=== PATIENT | male | born 1950 | race Caucasian/White ===

== ENCOUNTER 2017-08-02 20:16 | Emergency (ER) | payer MEDICARE, MEDICAID ==
[~2017-08-02] VITALS: Ht 165.1 cm; Wt 185.0 kg
[~2017-08-02 20:16] MED LIST: ALPR2TAB7 PO; ATOR20TA66 PO; BACL10TA PO; DULO60CA64 PO; ENOX40SY7 SQ; LISI30TA4 PO; MELO-100 PO; TRAZ-143 PO; ZOLP5TAB8 PO
[2017-08-02] MEDS ORDERED: acetaminophen 325mg tablet PO ONE (20:40)
[2017-08-02] MEDS ORDERED: ketorolac tromethamine 15mg/ml inj. IM ONE (22:35)
[2017-08-02] MEDS ORDERED: ONDA4TAB12 PO (23:21)
[2017-08-02] MEDS ORDERED: HYDR-3965 PO (23:21)
[2017-08-02] MEDS ORDERED: AMOX-422 PO (23:21)
[2017-08-02 23:35] VITALS: BP 154/79
[2017-08-03] MEDS ORDERED: LIDOcaine 1.5% w/epinephrine 1:200,000 5ml ampul IJ ONE (00:20)
== END 2017-08-03 01:06 | disposition left against medical advice (07) ==
LOC: ER 20:17
DX: S02.40FA Zygomatic fracture, left side, initial encounter for closed fracture (principal); S00.12XA Contusion of left eyelid and periocular area, initial encounter; S20.212A Contusion of left front wall of thorax, initial encounter; S00.03XA Contusion of scalp, initial encounter; Z79.899 Other long term (current) drug therapy; Y08.89XA Assault by other specified means, initial encounter; Y93.89 Activity, other specified; Y92.89 Other specified places as the place of occurrence of the external cause; Y99.8 Other external cause status
CPT/HCPCS: 12011; 70450; 70486; 71045; 72125; 96372; 99284; A6449; J1885; J3490

== ENCOUNTER 2017-09-06 13:29 | Emergency (ER) | payer MEDICARE, MEDICAID ==
[~2017-09-06] VITALS: Ht 170.2 cm; Wt 82.0 kg
[~2017-09-06 13:29] MED LIST changes: +ONDA4TAB12 PO
[2017-09-06 14:36] LABS: BASOPHILS % (AUTO) 0.3 % (0-1); EOSINOPHILS # (AUTO) 0.2 X10'3 (0-0.9); HEMATOCRIT 42.5 % (42.0-52.0); HEMOGLOBIN 14.3 g/dl (14.0-17.9); LYMPHOCYTES # (AUTO) 1.8 X10'3 (1.1-4.8); MEAN CORPUSCULAR HEMOGLOBIN 29.1 PG (27.0-31.0); MEAN CORPUSCULAR HGB CONC 33.7 % (33.0-36.5); MEAN CORPUSCULAR VOLUME 86.5 FL (78-98); MEAN PLATELET VOLUME 6.7 FL (7.4-10.4); MONOCYTES # (AUTO) 0.8 X10'3 (0-0.9); MONOCYTES % (AUTO) 6.4 % (2-12); NEUTROPHILS # (AUTO) 9.3 X10'3 (1.8-7.7); NEUTROPHILS % (AUTO) 76.3 % (42-75); PLATELET COUNT 314 X10'3 (140-440); RED BLOOD COUNT 4.91 X10'6 (4.70-6.10); RED CELL DISTRIBUTION WIDTH 14.7 % (11.5-14.5); WHITE BLOOD COUNT 12.2 X10'3 (4.5-11.0)
[2017-09-06 14:48] LABS: ALANINE AMINOTRANSFERASE 26 U/L (12-78); ALBUMIN 3.4 G/DL (3.4-5.0); ALBUMIN/GLOBULIN RATIO 0.9 (1.1-1.5); ALKALINE PHOSPHATASE 114 IU/L (46-116); ANION GAP 7 (8-16); ASPARTATE AMINO TRANSFERASE 19 U/L (10-37); BILIRUBIN,TOTAL 0.5 MG/DL (0.1-1.0); BLOOD UREA NITROGEN 23 MG/DL (7-18); BUN/CREATININE RATIO 15.1 (5.4-32.0); CALCIUM 9.3 MG/DL (8.5-10.1); CHLORIDE 104 MMOL/L (99-107); CREATININE 1.52 MG/DL (0.60-1.10); GLUCOSE 124 MG/DL (70-104); POTASSIUM 4.2 MMOL/L (3.5-5.1); SODIUM 139 MMOL/L (135-145); TOTAL CARBON DIOXIDE 27.8 MMOL/L (24-32); eGFR 46 ML/MIN
[2017-09-06 14:51] LABS: URINE AMPHETAMINE SCREEN NEGATIVE (Neg); URINE BARBITUATE SCREEN NEGATIVE (Neg); URINE BENZODIAZEPINES SCREEN POSITIVE (Neg); URINE CANNABINOID SCREEN NEGATIVE (Neg); URINE COCAINE SCREEN NEGATIVE (Neg); URINE METHADONE SCREEN NEGATIVE (Neg); URINE OPIATE SCREEN NEGATIVE (Neg); URINE PHENCYCLIDINE SCREEN NEGATIVE (Neg)
[2017-09-06 14:57] LABS: ETHANOL < 0.010 GM/DL (0.0-0.010)
[2017-09-06] MEDS ORDERED: ALPR1TAB2 PO (17:24)
[2017-09-06 17:28] VITALS: BP 143/66
[2017-09-06] MEDS ORDERED: ALPRAZolam 0.5mg tablet PO ONE (20:00)
[2017-09-06] MEDS ORDERED: aripiprazole 5mg tablet PO SCH (20:00)
[2017-09-06] MEDS ORDERED: quetiapine 100mg tablet PO SCH (21:00)
== END 2017-09-06 23:32 | disposition home or self-care (01) ==
LOC: ER 13:29
DX: F32.9 Major depressive disorder, single episode, unspecified (principal); F17.200 Nicotine dependence, unspecified, uncomplicated; Z79.899 Other long term (current) drug therapy
CPT/HCPCS: 36415; 80053; 80305; 80320; 84443; 85025; 99284

== ENCOUNTER 2017-09-06 18:21 | Inpatient (IN) | payer MEDICARE, MEDICAID ==
[~2017-09-06] VITALS: Ht 170.2 cm; Wt 82.2 kg
[~2017-09-06 18:21] MED LIST changes: +ALPR1TAB2 PO; -TRAZ-143 PO; +TRAZ-218 PO
[2017-09-06 23:00] VITALS: BP 137/81
[2017-09-06] MEDS ORDERED: ondansetron 4mg rapidly disintigrating tab PO PRN (23:15)
[2017-09-07] MEDS ORDERED: acetaminophen 325mg tablet PO PRN (00:55)
[2017-09-07] MEDS ORDERED: mag hydrox/Alum hydrox/simeth 30ml oral suspension PO PRN (00:55)
[2017-09-07 08:00] VITALS: BP 110/58
[2017-09-07] MEDS: nicotine 21mg patch - 24 hr TD SCH (08:00)
[2017-09-07] MEDS ORDERED: lisinopril 10 MG tablet PO SCH (08:00)
[2017-09-07 08:27] VITALS: BP 92/53
[2017-09-07] MEDS: baclofen 10mg tablet PO SCH ×3 (08:36→23:00)
[2017-09-07 08:41] LABS: CHOL/HDL RATIO 3.9 (0.00-4.99); CHOLESTEROL 155 MG/DL (0-200); HDL CHOLESTEROL 40 MG/DL (35-60); LDL CHOLESTEROL 100 MG/DL (50-100); TRIGLYCERIDES 115 MG/DL (20-135)
[2017-09-07 09:10] LABS: HEMOGLOBIN A1C 5.7 % (4.5-6.2)
[2017-09-07 17:15] VITALS: BP 98/56
[2017-09-07 19:00] VITALS: BP 109/57
[2017-09-07] MEDS: ALPRAZolam 0.5mg tablet PO PRN (19:31)
[2017-09-07 23:00] VITALS: BP 120/70
[2017-09-07] MEDS: traZODone 150mg tablet PO SCH (23:00)
[2017-09-08 05:13] VITALS: BP 100/60
[2017-09-08 08:00] VITALS: BP 92/55
[2017-09-08] MEDS: nicotine 21mg patch - 24 hr TD SCH (08:00)
[2017-09-08] MEDS: lisinopril 10 MG tablet PO SCH (08:00)
[2017-09-08] MEDS: duloxetine 30mg CAPSULE.DR PO SCH (08:14)
[2017-09-08] MEDS: baclofen 10mg tablet PO SCH ×3 (08:14→21:16)
[2017-09-08 09:42] LABS: BASOPHILS % (AUTO) 0.3 % (0-1); EOSINOPHILS # (AUTO) 0.4 X10'3 (0-0.9); EOSINOPHILS % (AUTO) 3.5 % (0-6); HEMATOCRIT 38.5 % (42.0-52.0); HEMOGLOBIN 13.1 g/dl (14.0-17.9); LYMPHOCYTES % (AUTO) 18.2 % (21-51); MEAN CORPUSCULAR HEMOGLOBIN 29.3 PG (27.0-31.0); MEAN CORPUSCULAR VOLUME 86.1 FL (78-98); MEAN PLATELET VOLUME 7.1 FL (7.4-10.4); MONOCYTES # (AUTO) 0.8 X10'3 (0-0.9); MONOCYTES % (AUTO) 7.7 % (2-12); NEUTROPHILS # (AUTO) 7.8 X10'3 (1.8-7.7); NEUTROPHILS % (AUTO) 70.3 % (42-75); PLATELET COUNT 311 X10'3 (140-440); RED BLOOD COUNT 4.47 X10'6 (4.70-6.10); RED CELL DISTRIBUTION WIDTH 14.8 % (11.5-14.5)
[2017-09-08 09:58] LABS: ALBUMIN 3.1 G/DL (3.4-5.0); ANION GAP 7 (8-16); BLOOD UREA NITROGEN 25 MG/DL (7-18); CALCIUM 8.9 MG/DL (8.5-10.1); CHLORIDE 102 MMOL/L (99-107); CREATININE 1.56 MG/DL (0.60-1.10); GLUCOSE 132 MG/DL (70-104); POTASSIUM 4.4 MMOL/L (3.5-5.1); SODIUM 138 MMOL/L (135-145); eGFR 44 ML/MIN
[2017-09-08] MEDS ORDERED: CefTRIAXone/D5W-Rocephin 1gm 50 ML IV SCH (13:00)
[2017-09-08 13:09] LABS: CLARITY,URINE CLEAR (Clear); COLOR,URINE YELLOW (Yellow); GLUCOSE, URINE NEGATIVE (Neg); KETONES,URINE NEGATIVE (Neg); LEUKOCYTE ESTERASE ,URINE NEGATIVE (Neg); NITRITES, URINE NEGATIVE (Neg); OCCULT BLOOD,URINE NEGATIVE (Neg); PH,URINE 6.5 (4.8-8.0); PROTEIN,URINE TRACE mg/dl (Neg); UA COLLECTION TYPE CLN CATCH MIDSTREAM; UROBILINOGEN,URINE 0.2 E.U/dL (0.2-1.0)
[2017-09-08 13:15] LABS: BACTERIA,URINE NONE SEEN /HPF (Neg); MUCUS STRANDS NONE SEEN /LPF (Neg); RBC,URINE 0-2 /HPF (0-2); SQUAMOUS EPITHELIAL CELL,UR NONE SEEN /LPF (FEW); WBC,URINE NONE SEEN /HPF (0-4)
[2017-09-08] MEDS: cefTRIAXone 1g/NS 100ml IVPB 100 ML IV SCH (14:41)
[2017-09-08 19:00] VITALS: BP 113/53
[2017-09-08] MEDS: ALPRAZolam 0.5mg tablet PO PRN (21:16)
[2017-09-08] MEDS: traZODone 150mg tablet PO SCH (21:16)
[2017-09-09] MEDS: lisinopril 10 MG tablet PO SCH (07:58)
[2017-09-09] MEDS: duloxetine 30mg CAPSULE.DR PO SCH (07:59)
[2017-09-09 08:00] VITALS: BP 121/55
[2017-09-09] MEDS: baclofen 10mg tablet PO SCH ×3 (08:10→20:19)
[2017-09-09] MEDS: cefTRIAXone 1g/NS 100ml IVPB 100 ML IV SCH (08:35)
[2017-09-09] MEDS: ALPRAZolam 0.5mg tablet PO PRN (19:05)
[2017-09-09] MEDS: lactobacillus rhamnosus 10,000 MMU CELLS/CAPSULE PO SCH (20:19)
[2017-09-09] MEDS: traZODone 150mg tablet PO SCH (20:19)
[2017-09-09 20:24] VITALS: BP 110/39
[2017-09-10 08:00] VITALS: BP 143/93
[2017-09-10] MEDS: lactobacillus rhamnosus 10,000 MMU CELLS/CAPSULE PO SCH ×2 (09:36→21:33)
[2017-09-10] MEDS: lisinopril 10 MG tablet PO SCH (09:36)
[2017-09-10] MEDS: baclofen 10mg tablet PO SCH ×3 (09:36→21:33)
[2017-09-10] MEDS: duloxetine 30mg CAPSULE.DR PO SCH (09:36)
[2017-09-10 16:45] VITALS: BP 129/61
[2017-09-10] MEDS ORDERED: bisacodyl 10mg suppository rectal RC PRN (19:00)
[2017-09-10] MEDS: ALPRAZolam 0.5mg tablet PO PRN (19:21)
[2017-09-10 19:40] VITALS: BP 124/64
[2017-09-10] MEDS ORDERED: magnesium citrate 296ml oral solution PO ONE (20:05)
[2017-09-10] MEDS: traZODone 150mg tablet PO SCH (21:33)
[2017-09-11] MEDS: duloxetine 30mg CAPSULE.DR PO SCH (07:37)
[2017-09-11] MEDS: lisinopril 10 MG tablet PO SCH (07:38)
[2017-09-11] MEDS: baclofen 10mg tablet PO SCH ×3 (07:38→20:04)
[2017-09-11] MEDS: lactobacillus rhamnosus 10,000 MMU CELLS/CAPSULE PO SCH ×2 (07:38→20:04)
[2017-09-11 08:00] VITALS: BP 123/75
[2017-09-11] MEDS: magnesium hydroxide 30ml (MOM) UD suspension PO PRN (08:18)
[2017-09-11] MEDS: ALPRAZolam 0.5mg tablet PO PRN (08:18)
[2017-09-11 10:11] LABS: BASOPHILS # (AUTO) 0.1 X10'3 (0-0.2); BASOPHILS % (AUTO) 0.8 % (0-1); EOSINOPHILS # (AUTO) 0.3 X10'3 (0-0.9); HEMATOCRIT 39.6 % (42.0-52.0); HEMOGLOBIN 13.5 g/dl (14.0-17.9); LYMPHOCYTES # (AUTO) 1.7 X10'3 (1.1-4.8); LYMPHOCYTES % (AUTO) 16.7 % (21-51); MEAN CORPUSCULAR HEMOGLOBIN 29.4 PG (27.0-31.0); MEAN CORPUSCULAR VOLUME 86.3 FL (78-98); MEAN PLATELET VOLUME 6.8 FL (7.4-10.4); MONOCYTES # (AUTO) 0.6 X10'3 (0-0.9); MONOCYTES % (AUTO) 5.9 % (2-12); NEUTROPHILS # (AUTO) 7.4 X10'3 (1.8-7.7); NEUTROPHILS % (AUTO) 73.6 % (42-75); PLATELET COUNT 314 X10'3 (140-440); RED BLOOD COUNT 4.59 X10'6 (4.70-6.10); RED CELL DISTRIBUTION WIDTH 14.3 % (11.5-14.5); WHITE BLOOD COUNT 10.1 X10'3 (4.5-11.0)
[2017-09-11 10:26] LABS: ALANINE AMINOTRANSFERASE 20 U/L (12-78); ALBUMIN 3.5 G/DL (3.4-5.0); ALKALINE PHOSPHATASE 116 IU/L (46-116); ANION GAP 2 (8-16); ASPARTATE AMINO TRANSFERASE 19 U/L (10-37); BILIRUBIN,TOTAL 0.5 MG/DL (0.1-1.0); BLOOD UREA NITROGEN 21 MG/DL (7-18); CALCIUM 9.4 MG/DL (8.5-10.1); CHLORIDE 104 MMOL/L (99-107); GLUCOSE 108 MG/DL (70-104); POTASSIUM 4.6 MMOL/L (3.5-5.1); SODIUM 139 MMOL/L (135-145); TOTAL CARBON DIOXIDE 32.8 MMOL/L (24-32); TOTAL PROTEIN 7.1 G/DL (6.4-8.2); eGFR 50 ML/MIN
[2017-09-11] MEDS: LORazepam 0.5 MG tablet PO SCH ×2 (12:49→20:04)
[2017-09-11 14:00] VITALS: BP 149/63
[2017-09-11 19:57] VITALS: BP 128/61
[2017-09-11] MEDS: traZODone 150mg tablet PO SCH (20:04)
[2017-09-11] MEDS: QUEtiapine 25mg tablet PO SCH (20:04)
[2017-09-11] MEDS ORDERED: OLANZapine 5mg rapidly disint. tablet PO ONE (21:45)
[2017-09-11] MEDS ORDERED: LORazepam 1 MG tablet PO ONE (21:45)
[2017-09-12] MEDS: baclofen 10mg tablet PO SCH ×3 (08:00→20:13)
[2017-09-12] MEDS ORDERED: duloxetine 30mg CAPSULE.DR PO SCH (08:00)
[2017-09-12] MEDS: lactobacillus rhamnosus 10,000 MMU CELLS/CAPSULE PO SCH ×2 (12:44→20:12)
[2017-09-12] MEDS: lisinopril 10 MG tablet PO SCH (12:44)
[2017-09-12] MEDS: olanzapine 10mg tablet PO SCH (14:19)
[2017-09-12] MEDS: traZODone 150mg tablet PO SCH (20:13)
[2017-09-12] MEDS: QUEtiapine 25mg tablet PO SCH (20:13)
[2017-09-12] MEDS: OLANZapine 5mg rapidly disint. tablet PO SCH (20:14)
[2017-09-13] MEDS: olanzapine 10mg tablet PO SCH ×2 (07:30→12:43)
[2017-09-13 08:00] VITALS: BP 145/82
[2017-09-13] MEDS: baclofen 10mg tablet PO SCH ×3 (08:46→20:25)
[2017-09-13] MEDS: lisinopril 10 MG tablet PO SCH (08:46)
[2017-09-13] MEDS: lactobacillus rhamnosus 10,000 MMU CELLS/CAPSULE PO SCH ×2 (08:46→20:24)
[2017-09-13] MEDS: LORazepam 0.5 MG tablet PO PRN ×2 (08:47→19:29)
[2017-09-13 19:00] VITALS: BP 95/53
[2017-09-13] MEDS: traZODone 150mg tablet PO SCH (20:24)
[2017-09-13] MEDS: OLANZapine 5mg rapidly disint. tablet PO SCH (20:25)
[2017-09-13] MEDS: QUEtiapine 25mg tablet PO SCH (20:25)
[2017-09-14 08:00] VITALS: BP 151/74
[2017-09-14 08:01] VITALS: BP 98/62
[2017-09-14] MEDS: lactobacillus rhamnosus 10,000 MMU CELLS/CAPSULE PO SCH ×2 (08:10→19:54)
[2017-09-14] MEDS: baclofen 10mg tablet PO SCH ×3 (08:10→19:55)
[2017-09-14] MEDS: lisinopril 10 MG tablet PO SCH (08:10)
[2017-09-14] MEDS: olanzapine 10mg tablet PO SCH ×2 (08:11→12:38)
[2017-09-14] MEDS: acetaminophen 325mg tablet PO PRN ×2 (08:19→15:04)
[2017-09-14 19:00] VITALS: BP 119/90
[2017-09-14] MEDS: traZODone 150mg tablet PO SCH (19:54)
[2017-09-14] MEDS: QUEtiapine 25mg tablet PO SCH (19:55)
[2017-09-14] MEDS: OLANZapine 5mg rapidly disint. tablet PO SCH (19:58)
[2017-09-14] MEDS: LORazepam 0.5 MG tablet PO PRN (22:26)
[2017-09-15 07:54] VITALS: BP 114/56
[2017-09-15] MEDS: lactobacillus rhamnosus 10,000 MMU CELLS/CAPSULE PO SCH ×2 (08:03→20:20)
[2017-09-15] MEDS: lisinopril 10 MG tablet PO SCH (08:03)
[2017-09-15] MEDS: olanzapine 10mg tablet PO SCH ×2 (08:03→12:23)
[2017-09-15] MEDS: baclofen 10mg tablet PO SCH ×3 (08:03→20:20)
[2017-09-15] MEDS ORDERED: olanzapine 10mg tablet PO SCH (12:30)
[2017-09-15 20:00] VITALS: BP 122/59
[2017-09-15] MEDS: traZODone 150mg tablet PO SCH (20:21)
[2017-09-15] MEDS ORDERED: OLANZapine 2.5MG tablet PO SCH (21:00)
[2017-09-15] MEDS: LORazepam 0.5 MG tablet PO PRN (21:14)
[2017-09-16 08:00] VITALS: BP 166/74
[2017-09-16] MEDS: OLANZapine 2.5MG tablet PO SCH ×3 (08:07→20:39)
[2017-09-16] MEDS: baclofen 10mg tablet PO SCH ×3 (08:07→20:38)
[2017-09-16] MEDS: lamoTRIgine 25mg tablet PO SCH (08:08)
[2017-09-16] MEDS: lactobacillus rhamnosus 10,000 MMU CELLS/CAPSULE PO SCH ×2 (08:08→20:38)
[2017-09-16] MEDS: lisinopril 10 MG tablet PO SCH (08:08)
[2017-09-16] MEDS: magnesium hydroxide 30ml (MOM) UD suspension PO PRN (12:48)
[2017-09-16] MEDS: acetaminophen 325mg tablet PO PRN (16:44)
[2017-09-16 20:30] VITALS: BP 124/62
[2017-09-16] MEDS: traZODone 150mg tablet PO SCH (20:38)
[2017-09-17] MEDS: lamoTRIgine 25mg tablet PO SCH (07:57)
[2017-09-17] MEDS: lisinopril 10 MG tablet PO SCH (07:57)
[2017-09-17] MEDS: baclofen 10mg tablet PO SCH ×3 (07:58→20:30)
[2017-09-17] MEDS: OLANZapine 2.5MG tablet PO SCH ×2 (07:58→20:30)
[2017-09-17] MEDS: lactobacillus rhamnosus 10,000 MMU CELLS/CAPSULE PO SCH ×2 (07:58→20:30)
[2017-09-17 08:00] VITALS: BP 128/52
[2017-09-17] MEDS ORDERED: OLANZapine 2.5MG tablet PO PRN (08:05)
[2017-09-17] MEDS: acetaminophen 325mg tablet PO PRN (08:48)
[2017-09-17] MEDS: venlafaxine XR 37.5mg cap (Q24H) PO SCH (08:48)
[2017-09-17] MEDS: lurasidone 20mg tablet PO SCH (18:40)
[2017-09-17 19:53] VITALS: BP 112/59
[2017-09-17] MEDS: temazepam 15mg capsule PO SCH (20:30)
[2017-09-18 08:00] VITALS: BP 105/58
[2017-09-18] MEDS: venlafaxine XR 37.5mg cap (Q24H) PO SCH (08:06)
[2017-09-18] MEDS: lisinopril 10 MG tablet PO SCH (08:06)
[2017-09-18] MEDS: lactobacillus rhamnosus 10,000 MMU CELLS/CAPSULE PO SCH ×2 (08:06→20:57)
[2017-09-18] MEDS: baclofen 10mg tablet PO SCH ×3 (08:06→20:57)
[2017-09-18] MEDS: LORazepam 0.5 MG tablet PO PRN (17:50)
[2017-09-18] MEDS: lurasidone 20mg tablet PO SCH (19:23)
[2017-09-18 19:58] VITALS: BP 104/46
[2017-09-18] MEDS: temazepam 15mg capsule PO SCH (20:58)
[2017-09-18] MEDS: OLANZapine 2.5MG tablet PO SCH (20:58)
[2017-09-19] MEDS: LORazepam 0.5 MG tablet PO PRN (04:09)
[2017-09-19 08:12] VITALS: BP 129/90
[2017-09-19] MEDS: baclofen 10mg tablet PO SCH ×3 (08:42→21:19)
[2017-09-19] MEDS: lactobacillus rhamnosus 10,000 MMU CELLS/CAPSULE PO SCH ×2 (08:42→21:19)
[2017-09-19] MEDS: venlafaxine XR 37.5mg cap (Q24H) PO SCH (08:42)
[2017-09-19] MEDS: lisinopril 10 MG tablet PO SCH (08:42)
[2017-09-19] MEDS: acetaminophen 325mg tablet PO PRN (16:35)
[2017-09-19] MEDS: lurasidone 20mg tablet PO SCH (18:07)
[2017-09-19 19:25] VITALS: BP 126/67
[2017-09-19] MEDS: temazepam 15mg capsule PO SCH (21:19)
[2017-09-19] MEDS: OLANZapine 2.5MG tablet PO SCH (21:19)
[2017-09-20] MEDS: temazepam 15mg capsule PO PRN (01:19)
[2017-09-20] MEDS: acetaminophen 325mg tablet PO PRN (01:22)
[2017-09-20 07:55] VITALS: BP 139/59
[2017-09-20] MEDS: baclofen 10mg tablet PO SCH ×3 (08:25→20:20)
[2017-09-20] MEDS: lisinopril 10 MG tablet PO SCH (08:25)
[2017-09-20] MEDS: lactobacillus rhamnosus 10,000 MMU CELLS/CAPSULE PO SCH ×2 (08:26→20:21)
[2017-09-20] MEDS: venlafaxine XR 37.5mg cap (Q24H) PO SCH (08:26)
[2017-09-20] MEDS: LORazepam 0.5 MG tablet PO PRN (15:33)
[2017-09-20 19:00] VITALS: BP 139/76
[2017-09-20] MEDS: lurasidone 20mg tablet PO SCH (20:20)
[2017-09-20] MEDS: OLANZapine 2.5MG tablet PO SCH (20:21)
[2017-09-20] MEDS: temazepam 15mg capsule PO SCH (20:21)
[2017-09-21] MEDS: lactobacillus rhamnosus 10,000 MMU CELLS/CAPSULE PO SCH ×2 (08:00→20:10)
[2017-09-21] MEDS: venlafaxine XR 37.5mg cap (Q24H) PO SCH (08:00)
[2017-09-21] MEDS: lisinopril 10 MG tablet PO SCH (08:00)
[2017-09-21] MEDS: baclofen 10mg tablet PO SCH ×3 (08:00→20:10)
[2017-09-21 08:44] VITALS: BP 159/75
[2017-09-21] MEDS: lurasidone 20mg tablet PO SCH (18:47)
[2017-09-21 19:00] VITALS: BP 163/76
[2017-09-21] MEDS: temazepam 15mg capsule PO SCH (20:10)
[2017-09-21] MEDS: OLANZapine 2.5MG tablet PO SCH (20:10)
[2017-09-21] MEDS: temazepam 15mg capsule PO PRN (21:17)
[2017-09-22] MEDS: LORazepam 0.5 MG tablet PO PRN (04:07)
[2017-09-22 08:00] VITALS: BP 185/82
[2017-09-22] MEDS: venlafaxine XR 37.5mg cap (Q24H) PO SCH (08:08)
[2017-09-22] MEDS: lisinopril 10 MG tablet PO SCH (08:09)
[2017-09-22] MEDS: baclofen 10mg tablet PO SCH ×3 (08:09→20:52)
[2017-09-22] MEDS: lactobacillus rhamnosus 10,000 MMU CELLS/CAPSULE PO SCH ×2 (08:09→20:52)
[2017-09-22 11:15] VITALS: BP 156/78
[2017-09-22] MEDS ORDERED: lisinopril 10 MG tablet PO ONE (11:25)
[2017-09-22 19:00] VITALS: BP 120/73
[2017-09-22] MEDS: lurasidone 20mg tablet PO SCH (19:10)
[2017-09-22] MEDS: temazepam 15mg capsule PO SCH (20:52)
[2017-09-22] MEDS: OLANZapine 2.5MG tablet PO SCH (20:52)
[2017-09-22] MEDS: temazepam 15mg capsule PO PRN (23:19)
[2017-09-23] MEDS: lisinopril 10 MG tablet PO SCH (07:29)
[2017-09-23] MEDS: baclofen 10mg tablet PO SCH ×3 (07:29→20:33)
[2017-09-23] MEDS: lactobacillus rhamnosus 10,000 MMU CELLS/CAPSULE PO SCH ×2 (07:29→20:33)
[2017-09-23] MEDS: venlafaxine XR 37.5mg cap (Q24H) PO SCH (07:30)
[2017-09-23] MEDS: LORazepam 0.5 MG tablet PO PRN ×2 (07:31→20:33)
[2017-09-23 08:00] VITALS: BP 135/82
[2017-09-23] MEDS: lurasidone 20mg tablet PO SCH (17:46)
[2017-09-23 20:00] VITALS: BP 134/70
[2017-09-23] MEDS: temazepam 15mg capsule PO SCH (20:33)
[2017-09-23] MEDS: OLANZapine 2.5MG tablet PO SCH (20:33)
[2017-09-24 08:00] VITALS: BP 148/76
[2017-09-24] MEDS: baclofen 10mg tablet PO SCH ×3 (08:08→20:22)
[2017-09-24] MEDS: venlafaxine XR 37.5mg cap (Q24H) PO SCH (08:08)
[2017-09-24] MEDS: lisinopril 10 MG tablet PO SCH (08:08)
[2017-09-24] MEDS: lactobacillus rhamnosus 10,000 MMU CELLS/CAPSULE PO SCH ×2 (08:08→20:22)
[2017-09-24] MEDS: lurasidone 20mg tablet PO SCH (17:44)
[2017-09-24 19:00] VITALS: BP 136/70
[2017-09-24] MEDS: OLANZapine 2.5MG tablet PO SCH (20:22)
[2017-09-24] MEDS: temazepam 15mg capsule PO SCH (20:22)
[2017-09-24] MEDS: LORazepam 0.5 MG tablet PO PRN (20:27)
[2017-09-25 08:14] VITALS: BP 139/85
[2017-09-25] MEDS: venlafaxine XR 37.5mg cap (Q24H) PO SCH (08:28)
[2017-09-25] MEDS: lactobacillus rhamnosus 10,000 MMU CELLS/CAPSULE PO SCH ×2 (08:28→20:10)
[2017-09-25] MEDS: baclofen 10mg tablet PO SCH ×3 (08:28→20:11)
[2017-09-25] MEDS: lisinopril 10 MG tablet PO SCH (08:28)
[2017-09-25] MEDS: LORazepam 0.5 MG tablet PO PRN ×2 (08:31→19:11)
[2017-09-25] MEDS: lurasidone 20mg tablet PO SCH (18:02)
[2017-09-25 19:00] VITALS: BP 127/66
[2017-09-25] MEDS: OLANZapine 2.5MG tablet PO SCH (20:10)
[2017-09-25] MEDS: temazepam 15mg capsule PO SCH (20:10)
[2017-09-26] MEDS ORDERED: LURA40TA3 PO (08:06)
[2017-09-26] MEDS ORDERED: EFF37.5XRC PO (08:06)
[2017-09-26] MEDS ORDERED: TEMA15CA PO (08:06)
[2017-09-26] MEDS ORDERED: LISI-600 PO (08:06)
[2017-09-26] MEDS ORDERED: BAC10T PO (08:06)
[2017-09-26] MEDS ORDERED: ATI0.5T PO (08:06)
[2017-09-26 08:12] VITALS: BP 102/69
[2017-09-26] MEDS: baclofen 10mg tablet PO SCH ×2 (08:24→12:39)
[2017-09-26] MEDS: venlafaxine XR 37.5mg cap (Q24H) PO SCH (08:24)
[2017-09-26] MEDS: lactobacillus rhamnosus 10,000 MMU CELLS/CAPSULE PO SCH (08:24)
[2017-09-26] MEDS: lisinopril 10 MG tablet PO SCH (08:24)
[2017-09-26] MEDS ORDERED: LORazepam 1 MG tablet PO PRN (10:55)
== END 2017-09-26 14:00 | disposition home or self-care (01) | DRG 885 ==
LOC: ADULT MH 18:21
PROVIDERS: ADMIT Psychiatry & Neurology Psychiatry; ATTEND Psychiatry & Neurology Psychiatry
DX: F33.2 Major depressive disorder, recurrent severe without psychotic features (principal); R45.851 Suicidal ideations; F15.20 Other stimulant dependence, uncomplicated; D72.829 Elevated white blood cell count, unspecified; E78.00 Pure hypercholesterolemia, unspecified; F10.21 Alcohol dependence, in remission; M25.561 Pain in right knee; M25.559 Pain in unspecified hip; R25.3 Fasciculation; F12.20 Cannabis dependence, uncomplicated; F17.210 Nicotine dependence, cigarettes, uncomplicated; F41.9 Anxiety disorder, unspecified; F29 Unspecified psychosis not due to a substance or known physiological condition; F39 Unspecified mood [affective] disorder; G47.00 Insomnia, unspecified; G89.29 Other chronic pain; I10 Essential (primary) hypertension; K59.00 Constipation, unspecified; N28.9 Disorder of kidney and ureter, unspecified; R32 Unspecified urinary incontinence; Z79.899 Other long term (current) drug therapy; Z87.440 Personal history of urinary (tract) infections; Z80.8 Family history of malignant neoplasm of other organs or systems
CPT/HCPCS: 36415; 70450; 71045; 80048; 80053; 80061; 81001; 83036; 83605; 84145; 84443; 85025; 87040; 87070; 97161; 99285; J0696; J3490

== ENCOUNTER 2017-10-10 11:44 | Emergency (ER) | payer MEDICARE, MEDICAID ==
[~2017-10-10] VITALS: Ht 584.7 cm; Wt 84.1 kg
[~2017-10-10 11:44] MED LIST changes: -ALPR1TAB2 PO; -ALPR2TAB7 PO; +ATI0.5T PO; -ATOR20TA66 PO; +BAC10T PO; -BACL10TA PO; -DULO60CA64 PO; +EFF37.5XRC PO; -ENOX40SY7 SQ; +LISI-600 PO; -LISI30TA4 PO; +LURA40TA3 PO; -MELO-100 PO; -ONDA4TAB12 PO; +TEMA15CA PO; -TRAZ-218 PO; -ZOLP5TAB8 PO
[2017-10-10 12:48] LABS: BASOPHILS # (AUTO) 0.1 X10'3 (0-0.2); BASOPHILS % (AUTO) 1.1 % (0-1); EOSINOPHILS # (AUTO) 0.2 X10'3 (0-0.9); EOSINOPHILS % (AUTO) 2.1 % (0-6); HEMATOCRIT 45.5 % (42.0-52.0); HEMOGLOBIN 15.2 g/dl (14.0-17.9); LYMPHOCYTES # (AUTO) 1.9 X10'3 (1.1-4.8); LYMPHOCYTES % (AUTO) 17.8 % (21-51); MEAN CORPUSCULAR HEMOGLOBIN 28.8 PG (27.0-31.0); MEAN CORPUSCULAR HGB CONC 33.4 % (33.0-36.5); MEAN CORPUSCULAR VOLUME 86.1 FL (78-98); MEAN PLATELET VOLUME 6.8 FL (7.4-10.4); MONOCYTES # (AUTO) 0.5 X10'3 (0-0.9); MONOCYTES % (AUTO) 4.8 % (2-12); NEUTROPHILS # (AUTO) 7.8 X10'3 (1.8-7.7); NEUTROPHILS % (AUTO) 74.2 % (42-75); PLATELET COUNT 385 X10'3 (140-440); RED BLOOD COUNT 5.28 X10'6 (4.70-6.10); RED CELL DISTRIBUTION WIDTH 13.9 % (11.5-14.5); WHITE BLOOD COUNT 10.6 X10'3 (4.5-11.0)
[2017-10-10 13:04] LABS: ALANINE AMINOTRANSFERASE 15 U/L (12-78); ALBUMIN 3.3 G/DL (3.4-5.0); ALBUMIN/GLOBULIN RATIO 0.9 (1.1-1.5); ALKALINE PHOSPHATASE 119 IU/L (46-116); ANION GAP 6 (8-16); ASPARTATE AMINO TRANSFERASE 10 U/L (10-37); BILIRUBIN,TOTAL 0.4 MG/DL (0.1-1.0); BLOOD UREA NITROGEN 14 MG/DL (7-18); BUN/CREATININE RATIO 9.7 (5.4-32.0); CALCIUM 9.4 MG/DL (8.5-10.1); CHLORIDE 103 MMOL/L (99-107); CREATININE 1.44 MG/DL (0.60-1.10); ETHANOL < 0.010 GM/DL (0.0-0.010); GLUCOSE 141 MG/DL (70-104); POTASSIUM 4.5 MMOL/L (3.5-5.1); SODIUM 139 MMOL/L (135-145); TOTAL CARBON DIOXIDE 29.8 MMOL/L (24-32); eGFR 49 ML/MIN
[2017-10-10 13:14] LABS: URINE AMPHETAMINE SCREEN POSITIVE (Neg); URINE BARBITUATE SCREEN NEGATIVE (Neg); URINE BENZODIAZEPINES SCREEN NEGATIVE (Neg); URINE CANNABINOID SCREEN NEGATIVE (Neg); URINE COCAINE SCREEN NEGATIVE (Neg); URINE METHADONE SCREEN NEGATIVE (Neg); URINE OPIATE SCREEN NEGATIVE (Neg); URINE PHENCYCLIDINE SCREEN NEGATIVE (Neg)
[2017-10-10 13:45] LABS: CLARITY,URINE CLEAR (Clear); COLOR,URINE YELLOW (Yellow); GLUCOSE, URINE NEGATIVE (Neg); KETONES,URINE NEGATIVE (Neg); LEUKOCYTE ESTERASE ,URINE NEGATIVE (Neg); NITRITES, URINE NEGATIVE (Neg); OCCULT BLOOD,URINE NEGATIVE (Neg); PROTEIN,URINE 100 mg/dl (Neg)
[2017-10-10 13:47] LABS: UA COLLECTION TYPE CLN CATCH MIDSTREAM
[2017-10-10 13:50] LABS: BACTERIA,URINE NONE SEEN /HPF (Neg); RBC,URINE NONE SEEN /HPF (0-2); SQUAMOUS EPITHELIAL CELL,UR FEW /LPF (FEW); WBC,URINE 0-4 /HPF (0-4)
[2017-10-10] MEDS ORDERED: LURA40TA3 PO (17:08)
[2017-10-10] MEDS ORDERED: BACL10TA2 PO (17:08)
[2017-10-10] MEDS ORDERED: LORA0.5T PO (17:08)
[2017-10-10] MEDS ORDERED: LISI-600 PO (17:08)
[2017-10-10] MEDS ORDERED: TEMA15CA PO (17:08)
[2017-10-10] MEDS ORDERED: LORazepam 0.5 MG tablet PO PRN (17:30)
[2017-10-10] MEDS: temazepam 15mg capsule PO PRN (21:55)
[2017-10-10] MEDS: baclofen 10mg tablet PO SCH (21:56)
[2017-10-10] MEDS: lurasidone 20mg tablet PO SCH (21:56)
[2017-10-11] MEDS: baclofen 10mg tablet PO SCH ×3 (08:00→20:45)
[2017-10-11] MEDS ORDERED: lisinopril 20mg tablet PO SCH ×2 (08:00→16:30)
[2017-10-11] MEDS ORDERED: LORazepam 0.5 MG tablet PO PRN (16:10)
[2017-10-11] MEDS ORDERED: temazepam 15mg capsule PO PRN (16:10)
[2017-10-11] MEDS: lurasidone 20mg tablet PO SCH (20:44)
[2017-10-11] MEDS: temazepam 15mg capsule PO PRN (20:45)
[2017-10-11] MEDS ORDERED: lurasidone 20mg tablet PO SCH (21:00)
[2017-10-11 21:51] VITALS: BP 142/78
== END 2017-10-11 22:34 ==
LOC: ER 11:45
DX: F32.9 Major depressive disorder, single episode, unspecified (principal); R39.15 Urgency of urination; R30.0 Dysuria; F17.200 Nicotine dependence, unspecified, uncomplicated; Z88.6 Allergy status to analgesic agent
CPT/HCPCS: 36415; 80053; 80305; 80320; 81001; 85025; 99285